=== PATIENT | female | born 1995 | race Asian ===

== ENCOUNTER 2017-04-30 15:39 | Emergency (ER) | payer OTHER ==
[~2017-04-30] VITALS: Ht 170.2 cm; Wt 52.0 kg
[2017-04-30 15:44] VITALS: TEMP 36.7; Ht 170.2 cm; Wt 52.0 kg
--- NOTE | 2017-04-30 16:13 | EMERGENCY ROOM VISIT NOTE ---
History First contact with patient: 15:40 Chief Complaint: ABDOMINAL PAIN Stated Complaint: ABD PAIN Nursing Triage Summary: Patient arrived by ambulance bls with c/o abd cramping that started earlier today. Patient reports she had pasta earlier in the day and then became "sweaty " and had a bowel movement. Patient states she had some blood in her stool. Patient on arrival states she feels better rates pain a 0/10 History of Present Illness The patient is a 21 year old female who presents to the Emergency Room with complaints of resolved abdominal pain. The patient states that approximately 10 minutes after eating popsicle, she had a sudden onset of lower abdominal cramping. She became sweaty and had a bowel movement. She states this was a loose, watery stool with about a tablespoon of blood. She felt slightly nauseous at the time, but did not vomit. Her symptoms have completely resolved at this time. She does state that her feet are numb. She reports using "laughing gas" last night, which she feels may be congestive aching to her symptoms today. She reports a history of vitamin B12 deficiency but is otherwise healthy. She denies any recent illnesses or fevers/chills. Review of Systems A complete 10 point review of systems was reviewed with the patient with pertinent positives and negatives as per history of present illness. All else were negative. Social History Smoking Status: Never Smoker Current/Historical Medications No Active Prescriptions or Reported Meds Physical Exam Vital Signs Date Time Temp Pulse Resp B/P (MAP) Pulse Ox O2 Delivery O2 Flow Rate FiO2 04/30/17 18:29 76 20 115/69 98 04/30/17 17:50 64 20 110/56 98 Room Air 04/30/17 15:44 36.7 75 20 104/65 100 Room Air Physical Exam VITALS: Vitals are noted on the nurse's note and reviewed by myself. Vital signs stable. GENERAL: This is a 21-year-old female, in no acute distress, nondiaphoretic, well-developed well-nourished. SKIN: The skin was without rashes. HEAD: Normocephalic atraumatic. EARS: External auditory canals clear, tympanic membranes pearly rowe without erythema or effusion bilaterally. EYES: Pupils equal round and reactive to light and accommodation. Conjunctivae without injection, sclerae without icterus. Extraocular movements intact. MOUTH: Mucous membranes moist. Tonsils are not enlarged. Pharynx without erythema or exudate. NECK: Supple without nuchal rigidity. No lymphadenopathy. HEART: Regular rate and rhythm without murmurs gallops or rubs. LUNGS: Clear to auscultation bilaterally without wheezes, rales or rhonchi. ABDOMEN: Positive bowel sounds x 4. Soft, nontender, without masses or organomegaly. NEURO: Patient was alert and oriented to person place and time. Normal sensation. Medical Decision & Procedures ER Provider Diagnostic Interpretation: KUB CLINICAL HISTORY: 21 years-old Female presenting with abd cramping, diarrhea. TECHNIQUE: Single supine view of the abdomen was obtained. COMPARISON: None. FINDINGS: Normal bowel gas pattern. No evidence of free intraperitoneal gas, pneumatosis, or portal venous gas. No calcifications to suggest nephrolithiasis. Osseous structures normal. Lung bases clear. IMPRESSION: 1. No acute intra-abdominal pathology. Laboratory Results 04/30/17 17:12 Red Blood Count 3.87, Mean Corpuscular Volume 92.2, Mean Corpuscular Hemoglobin 31.5, Mean Corpuscular Hemoglobin Concent 34.2, Mean Platelet Volume 9.6, Neutrophils (%) (Auto) 83.5, Lymphocytes (%) (Auto) 13.6, Monocytes (%) (Auto) 2.5, Eosinophils (%) (Auto) 0.1, Basophils (%) (Auto) 0.0, Neutrophils # (Auto) 5.66, Lymphocytes # (Auto) 0.92, Monocytes # (Auto) 0.17, Eosinophils # (Auto) 0.01, Basophils # (Auto) 0.00 04/30/17 17:12 Test 04/30/17 17:00 04/30/17 17:12 Urine Color DK YELLOW Urine Appearance CLEAR (CLEAR) Urine pH 7.0 (4.5-7.5) Urine Specific [place] 1.029 (1.000-1.030) Urine Protein 1+ (NEG) Urine Glucose (UA) NEG (NEG) Urine Ketones TRACE (NEG) Urine Occult Blood NEG (NEG) Urine Nitrite NEG (NEG) Urine Bilirubin NEG (NEG) Urine Urobilinogen NEG (NEG) Urine Leukocyte Esterase TRACE (NEG) Urine WBC (Auto) 1-5 /hpf (0-5) Urine RBC (Auto) 0-4 /hpf (0-4) Urine Hyaline Casts (Auto) 1-5 /lpf (0-5) Urine Epithelial Cells (Auto) >30 /lpf (0-5) Urine Bacteria (Auto) NEG (NEG) Urine Renal Epithelial Cells /lpf (0-5) Urine Mucus PRESENT (NONE PRSENT) Urine Test NEG (NEG) Urine Opiates Screen NEG (NEG) Urine Methadone, Qualitative NEG (NEG) Urine Barbiturates NEG (NEG) Urine Phencyclidine (PCP) Level NEG (NEG) Ur Amphetamine/Methamphetamine NEG (NEG) MDMA (Ecstasy) Screen NEG (NEG) Urine Benzodiazepines Screen NEG (NEG) Urine Cocaine Metabolite NEG (NEG) Urine Marijuana (THC) NEG (NEG) White Blood Count 6.78 K/uL (4.8-10.8) Red Blood Count 3.87 M/uL (4.2-5.4) Hemoglobin 12.2 g/dL (12.0-16.0) Hematocrit 35.7 % (37-47) Mean Corpuscular Volume 92.2 fL (80-100) Mean Corpuscular Hemoglobin 31.5 pg (25-34) Mean Corpuscular Hemoglobin Concent 34.2 g/dl (32-36) Platelet Count 262 K/uL (130-400) Mean Platelet Volume 9.6 fL (7.4-10.4) Neutrophils (%) (Auto) 83.5 % Lymphocytes (%) (Auto) 13.6 % Monocytes (%) (Auto) 2.5 % Eosinophils (%) (Auto) 0.1 % Basophils (%) (Auto) 0.0 % Neutrophils # (Auto) 5.66 K/uL (1.4-6.5) Lymphocytes # (Auto) 0.92 K/uL (1.2-3.4) Monocytes # (Auto) 0.17 K/uL (0.11-0.59) Eosinophils # (Auto) 0.01 K/uL (0-0.5) Basophils # (Auto) 0.00 K/uL (0-0.2) RDW Standard Deviation 67.1 fL (36.4-46.3) RDW Coefficient of Variation 19.9 % (11.5-14.5) Immature Granulocyte % (Auto) 0.3 % Immature Granulocyte # (Auto) 0.02 K/uL (0.00-0.02) Anion Gap 9.0 mmol/L (3-11) Est Creatinine Clear Calc Drug Dose 87.6 ml/min Estimated GFR () 116.9 Estimated GFR (Non- 100.9 BUN/Creatinine Ratio 23.5 (10-20) Calcium Level 9.1 mg/dl (8.5-10.1) Total Bilirubin 0.6 mg/dl (0.2-1) Aspartate Amino Transf (AST/SGOT) 10 U/L (15-37) Alanine Aminotransferase (ALT/SGPT) 19 U/L (12-78) Alkaline Phosphatase 67 U/L (45-117) Total Protein 8.0 gm/dl (6.4-8.2) Albumin 4.4 gm/dl (3.4-5.0) Globulin 3.6 gm/dl (2.5-4.0) Albumin/Globulin Ratio 1.2 (0.9-2) ED Course The patient was evaluated as above. Labs were drawn and IV access was obtained. Patient was reevaluated and remains asymptomatic. She has had something to eat and drink and denies any abdominal pain at this time. Discharge instructions were reviewed with the patient. The patient verbalized understanding of my assessment and treatment plan and was discharged home in good condition. Medical Decision Differential diagnosis includes anxiety, drug use, vasovagal syncope, dehydration, UTI, infection, electrolyte abnormality, among others. The patient is a 21-year-old female who presents today complaining of abdominal pain which resolved prior to arrival. The patient was apparently dizzy and lightheaded initially. She reports all of her symptoms have resolved at this time. Labs were unremarkable. Urinalysis was not suggestive of infection. Vital signs were stable throughout her stay. She is not hypotensive. She was encouraged to increase fluids that she may have been slightly dehydrated. She was encouraged to not use any recreational drugs at home. She was instructed to follow-up with [place] [facility] as needed. Based on the patient's presentation and work up, I feel the patient is stable for outpatient treatment. The patient was educated to return to the emergency department for any worsening of their current condition or new/concerning symptoms. She will follow up with [place] [facility]. Medication Reconcilliation Current Medication List: was personally reviewed by me Blood Pressure Screening Patient's blood pressure: Normal blood pressure Impression Primary Impression: Pre-syncope Departure Information Dispostion Home / Self-Care Condition GOOD Prescriptions No Active Prescriptions or Reported Meds Referrals No Doctor, Assigned (PCP) Patient Instructions My [facility] Additional Instructions Rest and drink plenty of fluids. Do not do any drugs. Follow-up with [facility] services this week as needed.
--- NOTE | 2017-04-30 16:49 | DIAGNOSTIC IMAGING REPORT ---
KUB CLINICAL HISTORY: 21 years-old Female presenting with abd cramping, diarrhea. TECHNIQUE: Single supine view of the abdomen was obtained. COMPARISON: None. FINDINGS: Normal bowel gas pattern. No evidence of free intraperitoneal gas, pneumatosis, or portal venous gas. No calcifications to suggest nephrolithiasis. Osseous structures normal. Lung bases clear. IMPRESSION: 1. No acute intra-abdominal pathology. Electronically signed by: Hany Robison M.D. 04/30/2017 4:48 PM Dictated Date/Time: 04/30/2017 4:47 PM
[2017-04-30 17:19] LABS: PREG INTERNAL NEGATIVE QC NEG CLEAR BACKGROUND; PREG INTERNAL POSITIVE QC POS CONTROL LINE
[2017-04-30 17:22] LABS: URINE APPEARANCE CLEAR (CLEAR); URINE BILIRUBIN NEG (NEG); URINE COLOR DK YELLOW; URINE EPITHELIAL CELL AUTO >30 /lpf (0-5); URINE NITRITE NEG (NEG); URINE SPECIFIC GRAVITY 1.029 (1.000-1.030); UROBILINOGEN NEG (NEG); ZZUR CULT IF INDIC CLEAN CATCH NO
[2017-04-30 17:26] LABS: MANUAL MICROSCOPIC REQUIRED? NO; REVIEW REQ? YES
[2017-04-30 17:27] LABS: COMPLETE YES; EOS % 0.1 %; HEMATOCRIT 35.7 % (37-47); IG% 0.3 %; LYMPH % 13.6 %; LYMPH ABS # 0.92 K/uL (1.2-3.4); MEAN CELL VOLUME 92.2 fL (80-100); MEAN CORPUSCULAR HEMOGLOBIN 31.5 pg (25-34); MEAN CORPUSCULAR HGB CONC 34.2 g/dl (32-36); MEAN PLATELET VOLUME 9.6 fL (7.4-10.4); MONO % 2.5 %; NEUT % 83.5 %; PLATELET COUNT 262 K/uL (130-400); RED BLOOD COUNT 3.87 M/uL (4.2-5.4); WHITE BLOOD COUNT 6.78 K/uL (4.8-10.8)
[2017-04-30 17:39] LABS: URINE MUCUS PRESENT (NONE PRSENT)
[2017-04-30 17:48] LABS: BUN/CREATININE RATIO 23.5 (10-20); CALCIUM 9.1 mg/dl (8.5-10.1); CREATININE 0.82 mg/dl (0.60-1.20); POTASSIUM 3.5 mmol/L (3.5-5.1)
[2017-04-30 17:51] LABS: ALB/GLOB RATIO 1.2 (0.9-2)
[2017-04-30 18:02] LABS: BENZODIAZEPINE, URINE NEG (NEG); COCAINE,URINE NEG (NEG); PHENCYCLIDINE, URINE NEG (NEG)
[2017-04-30 18:29] VITALS: BP 115/69; PULSE 76; O2SAT 98
== END 2017-04-30 18:34 | disposition home or self-care (01) ==
LOC: EDBD 15:39 → C.EDB 15:40
DX: R55 Syncope and collapse (principal); R10.9 Unspecified abdominal pain; R11.0 Nausea

== ENCOUNTER 2017-05-04 12:53 | Emergency (ER) | payer OTHER ==
[~2017-05-04] VITALS: Ht 167.6 cm; Wt 43.2 kg
[2017-05-04 13:06] VITALS: TEMP 36.5; Ht 167.6 cm; Wt 43.2 kg
[2017-05-04] MEDS ORDERED: CYANOCOBALAMIN 1000 MCG/ML VIAL IM STA (13:10)
--- NOTE | 2017-05-04 13:35 | EMERGENCY ROOM VISIT NOTE ---
History Report prepared by Perry: Essie Manley Under the Supervision of: Jh RuthO. First contact with patient: 12:55 Stated Complaint: MENTAL HEALTH History of Present Illness The patient is a 21 year old female who presents to the Emergency Room for a mental health evaluation. The patient states that she has been inhaling nitrous oxide daily for the past year. As a result, she has stopped going to classes and wants to withdraw from [employer]. She went to withdraw from class today and she was sent to the ED via ambulance for further evaluation. The patient states that she has been experiencing numbness and tingling pain in her feet. She states that her head has "been feeling numb" at times. The patient also reports that she has had 3 periods in the past month. She was in the ED 4 days ago for nausea and some rectal bleeding. She had a negative work-up at that time and was discharged home. The patient denies any other drug use. She denies alcohol or tobacco use. She denies SI, HI, and visual or auditory hallucinations. Source of History: patient Onset: [employer] Position: other (global) Quality: other (mental health) Timing: constant Associated Symptoms: + numbness (and tingling in feet) Note: Pt denies SI, HI, and visual or auditory hallucinations. Review of Systems See HPI for pertinent positives & negatives. A total of 10 systems reviewed and were otherwise negative. Past Medical & Surgical Medical Problems: (1) Nausea (2) Syncope and collapse Family History No pertinent history stated. Social History Smoking Status: Never Smoker Smokeless Tobacco Use: No Alcohol Use: none Drug Use: other (nitrous oxide) Occupation Status: [employer] student Current/Historical Medications No Active Prescriptions or Reported Meds Allergies Coded Allergies: Shellfish (Unverified Allergy, Unknown, RASH/HIVES, 04/30/17) Physical Exam Vital Signs Date Time Temp Pulse Resp B/P (MAP) Pulse Ox O2 Delivery O2 Flow Rate FiO2 05/04/17 17:07 94 16 121/72 100 05/04/17 14:33 66 18 101/67 100 Room Air 05/04/17 13:06 36.5 78 18 119/64 98 Room Air Physical Exam GENERAL: Patient is awake, alert, and in no acute distress. Patient is resting comfortably and showing no signs of anxiety EYES: The conjunctivae are clear. The pupils are round and reactive. EARS, NOSE, MOUTH AND THROAT: The nose is without any evidence of any deformity. Mucous membranes are moist tongue is midline NECK: The neck is nontender and supple. RESPIRATORY: Normal respiratory effort is noted there is no evidence of wheezing rhonchi or rales CARDIOVASCULAR: Regular rate and rhythm noted there no murmurs rubs or gallops normal S1 normal S2 GASTROINTESTINAL: The abdomen is soft. Bowel sounds are present in all quadrants. Abdomen is nontender MUSCULOSKELETAL/EXTREMITIES: There is no evidence of gross deformity full range of motion is noted in the hips and shoulders SKIN: There is no obvious evidence of any rash. There are no petechiae, pallor or cyanosis noted. NEUROLOGIC: Patient is awake alert and oriented x3 strength is symmetric patellar reflexes are 2+ bilaterally PSYCH: Admits to using inhalants. Currently denying SI or HI. Medical Decision & Procedures ER Provider Diagnostic Interpretation: Radiology results as stated below per my review and radiologist interpretation: CT OF THE HEAD WITHOUT CONTRAST CLINICAL HISTORY: Weakness. COMPARISON STUDY: No previous studies for comparison. CT DOSE: 537.48 mGy.cm TECHNIQUE: Helical axial images of the head were obtained without IV contrast. Automated exposure control was utilized for the study. A dose lowering technique was utilized adhering to the principles of ALARA. FINDINGS: No acute intracranial hemorrhage, midline shift or mass effect is present. Ventricular system is normal. Basilar cisterns are patent. There are no extra-axial collections. Sarkar-white differentiation is maintained. There are no findings to suggest acute dural sinus thrombosis or acute territorial infarct. No calvarial fracture is present. Visualized portions of the sinuses and mastoid air cells are clear. IMPRESSION: No acute intracranial findings. Electronically signed by: Corey Vila M.D. 05/04/2017 1:35 PM Dictated Date/Time: 05/04/2017 1:33 PM Laboratory Results 05/04/17 14:10 Red Blood Count 3.80, Mean Corpuscular Volume 93.4, Mean Corpuscular Hemoglobin 30.8, Mean Corpuscular Hemoglobin Concent 33.0, Mean Platelet Volume 10.1, Neutrophils (%) (Auto) 52.2, Lymphocytes (%) (Auto) 38.0, Monocytes (%) (Auto) 8.2, Eosinophils (%) (Auto) 1.0, Basophils (%) (Auto) 0.3, Neutrophils # (Auto) 2.03, Lymphocytes # (Auto) 1.48, Monocytes # (Auto) 0.32, Eosinophils # (Auto) 0.04, Basophils # (Auto) 0.01 05/04/17 14:10 Test 05/04/17 00:00 05/04/17 14:10 05/04/17 15:55 Urine Color DK YELLOW Urine Appearance CLOUDY (CLEAR) Urine pH 5.5 (4.5-7.5) Urine Specific [place] 1.031 (1.000-1.030) Urine Protein 1+ (NEG) Urine Glucose (UA) NEG (NEG) Urine Ketones TRACE (NEG) Urine Occult Blood 2+ (NEG) Urine Nitrite NEG (NEG) Urine Bilirubin NEG (NEG) Urine Urobilinogen NEG (NEG) Urine Leukocyte Esterase SMALL (NEG) Urine WBC (Auto) 5-10 /hpf (0-5) Urine RBC (Auto) 10-30 /hpf (0-4) Urine Hyaline Casts (Auto) 1-5 /lpf (0-5) Urine Epithelial Cells (Auto) >30 /lpf (0-5) Urine Bacteria (Auto) NEG (NEG) Urine Renal Epithelial Cells /lpf (0-5) Urine Crystals CALCIUM OXALATE (NONE Urine Pathogenic Casts /lpf (0) Urine Yeast (Auto) (NONE PRSENT) Urine Test NEG (NEG) Urine Opiates Screen NEG (NEG) Urine Methadone, Qualitative NEG (NEG) Urine Barbiturates NEG (NEG) Urine Phencyclidine (PCP) Level NEG (NEG) Ur Amphetamine/Methamphetamine NEG (NEG) MDMA (Ecstasy) Screen NEG (NEG) Urine Benzodiazepines Screen NEG (NEG) Urine Cocaine Metabolite NEG (NEG) Urine Marijuana (THC) NEG (NEG) White Blood Count 3.89 K/uL (4.8-10.8) Red Blood Count 3.80 M/uL (4.2-5.4) Hemoglobin 11.7 g/dL (12.0-16.0) Hematocrit 35.5 % (37-47) Mean Corpuscular Volume 93.4 fL (80-100) Mean Corpuscular Hemoglobin 30.8 pg (25-34) Mean Corpuscular Hemoglobin Concent 33.0 g/dl (32-36) Platelet Count 284 K/uL (130-400) Mean Platelet Volume 10.1 fL (7.4-10.4) Neutrophils (%) (Auto) 52.2 % Lymphocytes (%) (Auto) 38.0 % Monocytes (%) (Auto) 8.2 % Eosinophils (%) (Auto) 1.0 % Basophils (%) (Auto) 0.3 % Neutrophils # (Auto) 2.03 K/uL (1.4-6.5) Lymphocytes # (Auto) 1.48 K/uL (1.2-3.4) Monocytes # (Auto) 0.32 K/uL (0.11-0.59) Eosinophils # (Auto) 0.04 K/uL (0-0.5) Basophils # (Auto) 0.01 K/uL (0-0.2) RDW Standard Deviation 68.5 fL (36.4-46.3) RDW Coefficient of Variation 20.5 % (11.5-14.5) Immature Granulocyte % (Auto) 0.3 % Immature Granulocyte # (Auto) 0.01 K/uL (0.00-0.02) Anisocytosis PRESENT Anion Gap 11.0 mmol/L (3-11) Est Creatinine Clear Calc Drug Dose 89.1 ml/min Estimated GFR () 143.6 Estimated GFR (Non- 123.9 BUN/Creatinine Ratio 22.2 (10-20) Calcium Level 9.5 mg/dl (8.5-10.1) Magnesium Level 2.5 mg/dl (1.8-2.4) Total Bilirubin 0.4 mg/dl (0.2-1) Direct Bilirubin 0.1 mg/dl (0-0.2) Aspartate Amino Transf (AST/SGOT) 13 U/L (15-37) Alanine Aminotransferase (ALT/SGPT) 17 U/L (12-78) Alkaline Phosphatase 67 U/L (45-117) Total Protein 8.2 gm/dl (6.4-8.2) Albumin 4.5 gm/dl (3.4-5.0) Thyroid Stimulating Hormone (TSH) 1.240 uIu/ml (0.300-4.500) Ethyl Alcohol mg/dL < 3.0 mg/dl (0-3) Vitamin B12 Level > 2000 pg/mL (211-911) Laboratory results per my review. Medications Administered Medications (Trade) Dose Ordered Sig/Nancy Route Start Time Stop Time Status Last Admin Dose Admin Cyanocobalamin (Vitamin B-12 Inj) 1,000 mcg ONE STAT IM 05/04/17 13:10 05/04/17 13:12 DC 05/04/17 13:10 1,000 MCG ED Course 1255: The patient was evaluated in room A8. A complete history and physical examination were performed. 1310: Cyanocobalamin 1000 mcg IM 1318: I spoke with Dr. Pugh of neurology regarding the patient's case. The patient was previously referred to him for follow-up but she has not been coming to her appointments. 1346: I spoke with the psychiatric binder caser who had spoken to [facility]. Today was the first time the patient had come to their office. [facility] was concerned about the patient because she was unable to walk in their office today. They also do not think that the patient has any support system locally as she is an international student. 1513: I updated the patient on her results. We discussed the treatment plan and she is refusing to stay in the hospital at this time. 1537: I spoke with Dr. Pugh of neurology again regarding the patient's treatment plan. He recommended Vitamin B12 replacement and cessation of nitrous oxide use. 1600: I reassessed the patient at this time. She is feeling better and resting comfortably. I discussed the results and treatment plan with the patient. I answered all pertaining questions that she had. She expressed understanding and verbalized agreement. The patient will be discharged home. Medical Decision Differential diagnosis: Etiologies such as mood disorder, infection, hypoglycemia, electrolyte abnormalities, cardiac sources, intracerebral event, toxicologic, neurologic, as well as others were entertained. Nursing notes reviewed. The patient is a 21-year-old female who presented to the emergency department for mental health evaluation. 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 She's been seen by her primary care physician as well as by neurology. She is had a regimen of vitamin B-12 but I am unsure if she has been compliant with this. She was given a dose of vitamin B-12 the emergency department. She was evaluated by the mental health binder caser. At this time she does not wish to be admitted for mental health evaluation and she does not wish to be admitted for a medical admission. I discussed her case with her neurologist. She was encouraged to continue all medications as prescribed and avoid further nitrous oxide. She was also encouraged follow-up with [facility]. She was encouraged to call crisis or return to emergency [place] immediately if symptoms change worsen or the need arises. Medication Reconcilliation Current Medication List: was personally reviewed by me Blood Pressure Screening Patient's blood pressure: Normal blood pressure Consults Time Called: 1315 Consulting Physician: Dr. Pugh Returned Call: [address] Pugh of neurology regarding the patient's case. The patient was previously referred to him for follow-up but she has not been coming to her appointments. Additional Consults: Time Called: 1531 Consulted Physician: Dr. Pugh Returned Call: [phone] Additional Comments: I spoke with Dr. Pugh of neurology again regarding the patient's treatment plan. He recommended Vitamin B12 replacement and cessation of nitrous oxide use. Impression Primary Impression: Poisoning by nitrous oxide Additional Impression: Peripheral neuropathy Scribe Attestation The scribe's documentation has been prepared under my direction and personally reviewed by me in its entirety. I confirm that the note above accurately reflects all work, treatment, procedures, and medical decision making performed by me. Departure Information Dispostion Home / Self-Care Prescriptions No Active Prescriptions or Reported Meds Referrals Giovana Pugh M.D. [facility] Forms HOME CARE DOCUMENTATION FORM, IMPORTANT VISIT INFORMATION, School Instructions, Work Instructions Patient Instructions ED Drug Abuse General, My [facility], Neuropathy Peripheral Additional Instructions Avoid any further use of nitrous oxide. You should follow-up with [facility] every week for a new vitamin B-12 injection. You received one dose of vitamin B-12 in the ER today. I would recommend a repeat injection every week for the next 4 weeks. And then a repeat injection every other week for 4 doses afterwards. Call crisis or return to the emergency department immediately if symptoms change worsen or the need arises. Call the neurologist to schedule a follow-up appointment as well. Problem Qualifiers Primary Impression: Poisoning by nitrous oxide Encounter type: sequela Injury intent: accidental or unintentional Qualified Codes: T41.0X1S - Poisoning by inhaled anesthetics, accidental ( unintentional), sequela Additional Impression: Peripheral neuropathy Peripheral neuropathy type: polyneuropathy, unspecified Qualified Codes: G62.9 - Polyneuropathy, unspecified
[2017-05-04 13:49] LABS: BENZODIAZEPINE, URINE NEG (NEG); COCAINE,URINE NEG (NEG); PHENCYCLIDINE, URINE NEG (NEG)
[2017-05-04 14:40] LABS: BASO % 0.3 %; BASO ABS # 0.01 K/uL (0-0.2); HEMATOCRIT 35.5 % (37-47); IG% 0.3 %; LYMPH ABS # 1.48 K/uL (1.2-3.4); MEAN CELL VOLUME 93.4 fL (80-100); MEAN CORPUSCULAR HEMOGLOBIN 30.8 pg (25-34); MEAN PLATELET VOLUME 10.1 fL (7.4-10.4); MONO % 8.2 %; NEUT % 52.2 %; PLATELET COUNT 284 K/uL (130-400); WHITE BLOOD COUNT 3.89 K/uL (4.8-10.8)
[2017-05-04 15:00] LABS: BUN/CREATININE RATIO 22.2 (10-20); CALCIUM 9.5 mg/dl (8.5-10.1); CREATININE 0.67 mg/dl (0.60-1.20); MAGNESIUM 2.5 mg/dl (1.8-2.4); POTASSIUM 3.6 mmol/L (3.5-5.1)
[2017-05-04 15:11] LABS: THYROID STIMULATING HORMONE 1.24 uIu/ml (0.300-4.500)
[2017-05-04 15:25] LABS: ANISOCYTOSIS PRESENT; COMPLETE YES
[2017-05-04 16:18] LABS: URINE APPEARANCE CLOUDY (CLEAR); URINE BILIRUBIN NEG (NEG); URINE COLOR DK YELLOW; URINE EPITHELIAL CELL AUTO >30 /lpf (0-5); URINE NITRITE NEG (NEG); URINE PH 5.5 (4.5-7.5); URINE SPECIFIC GRAVITY 1.031 (1.000-1.030); UROBILINOGEN NEG (NEG)
[2017-05-04 16:22] LABS: MANUAL MICROSCOPIC REQUIRED? NO; REVIEW REQ? YES
[2017-05-04 17:07] VITALS: BP 121/72; PULSE 94; O2SAT 100
== END 2017-05-04 17:09 | disposition home or self-care (01) ==
LOC: EDBD 12:53 → C.EDA 12:54
DX: T41 Poisoning by, adverse effect of and underdosing of anesthetics and therapeutic gases (principal); G62.9 Polyneuropathy, unspecified

== ENCOUNTER 2017-07-10 14:55 | Emergency (ER) | payer OTHER ==
[~2017-07-10] VITALS: Ht 170.2 cm; Wt 53.3 kg
[2017-07-10 15:06] VITALS: BP 121/87; PULSE 103; TEMP 36.9; O2SAT 98; Ht 170.2 cm; Wt 53.3 kg
[2017-07-10] MEDS ORDERED: METH4PAK PO (15:37)
--- NOTE | 2017-07-10 15:40 | EMERGENCY ROOM VISIT NOTE ---
ED Visit Note First contact with patient: 15:19 CHIEF COMPLAINT: Rash HISTORY OF PRESENT ILLNESS: This 21-year-old female patient presents to the emergency department, ambulatory, complaining of a rash on her face and neck which started about 1 week ago. The patient states she changed her face cream approximately 1 week prior to noticing the rash. She has continued to use the face cream until yesterday. The patient denies fever, chills, nausea, or loss of appetite. They deny any URI symptoms. The patient has tried multiple different lotions, baby lotions, oil, and aloe. The patient states the rash is itchy and rates the discomfort as 0/10. She states she was recently in [place] where she purchased a bottle of similar lotion and did not have a problem. She states when she returned, she purchased a new bottle of the same lotion. The rash is only in the area that she applies this is a 50 lotion, and she has not noticed a rash anywhere else. No change in food, soap, detergents, or other environmental factors. No new medications. No weakness or numbness. REVIEW OF SYSTEMS: A 6 system review of systems was completed with positives and pertinent negatives listed in the HPI. ALLERGIES: Seafood MEDICATIONS: None PMH: None SOCIAL HISTORY: The patient is a [employer] student. She lives locally with her roommates. She denies drug, alcohol use. She denies a smoking approximately 5 cigarettes per day. PHYSICAL EXAM: Vital Signs: Reviewed Nurse's notes, vital signs stable. GENERAL : This is a 21-year-old female, in no acute distress, well-developed, well -nourished. SKIN: There is a dry, erythematous, maculopapular rash on the face and neck. There is no active drainage. The face is slightly swollen, but there is no lip swelling. The airway is patent. Capillary refill less than 2 seconds. EMERGENCY DEPARTMENT COURSE: The patient was seen and evaluated as above. Suspect an allergic contact dermatitis due to the face lotion the patient has recently been using, as this is new and the distribution of the rash is consistent with the location the patient applies the lotion. The patient has been using the lotion up until yesterday, and states the rash has been getting worse until she stopped using it. She has been trying several OTC lotions in order to try to help the rash improved. She will be prescribed Medrol Dosepak to be used if the rash does not improve over the next 1-2 days after discontinuing the use of the face cream. I did also recommend Benadryl, and offered to provide the patient with a dose here, but she declines. She is in agreement with the assessment and plan, and discharge instructions were reviewed. Patient is discharged home in good condition. I attest that I have personally reviewed the patient's current medication list. Patient was found to have normal blood pressure on screening and does not require follow-up. DIFFERENTIAL DIAGNOSIS: Dermatitis, contact dermatitis, upper respiratory infection, acute sinusitis, cellulitis, abscess, malignancy, and others DIAGNOSIS: Contact dermatitis due to cosmetics Problem List Medical Problems: (1) Nausea Status: Resolved (2) Syncope and collapse Status: Resolved Current/Historical Medications Scheduled Methylprednisolone (Medrol Dosepak), 0 PO DAILY Allergies Coded Allergies: Shellfish (Verified Allergy, Severe, RASH/HIVES, 07/10/17) Uncoded Nonscreenable Allergen (Verified Allergy, Unknown, SEAFOOD-"ITCHY , RED RASH IF EAT 2 KINDS AT ONCE"., 07/10/17) Vital Signs Date Time Temp Pulse Resp B/P (MAP) Pulse Ox O2 Delivery O2 Flow Rate FiO2 07/10/17 15:06 36.9 103 16 121/87 98 Room Air Departure Information Impression Primary Impression: Contact dermatitis due to cosmetics Dispostion Home / Self-Care Condition GOOD Prescriptions Methylprednisolone (MEDROL DOSEPAK) 4 Mg [place] 0 PO DAILY, #1 PKT Prov: Izabella Lang, SANTANA 07/10/17 Referrals No Doctor, Assigned (PCP) [facility] Patient Instructions ED Allergic Reaction Local Other, My [facility] Additional Instructions You have been treated in the Emergency Department today for your Rash ( Dermatitis). You have been prescribed a Medrol Dosepak. This is a steroid which will help decrease your inflammation, redness, and itch. Take the medicine as prescribed. Take the ENTIRE 6 day course of the steroids. Take this medication only if the rash does not improve after 1-2 days of not using the face lotion we suspect is the cause of the rash. You should take Benadryl (diphenhydramine) 50 mgs every 6 hours for the next 3 days. You can find this medicine [id number]. Benadryl can help reduce your symptoms. You should take it for the next 3 days or until your symptoms have subsided. Be aware that Benadryl can make you drowsy. As discussed, you may try Eucerin cream for sensitive skin, however, I would be cautious, as new creams could always worsen the allergic reaction. I strongly recommend against any creams until the rash has subsided. As with any Emergency Department visit, you should follow-up with your Primary Care Provider in 3-4 days for reevaluation from today's visit. Return to the Emergency Department if your symptoms persists despite the above outlined treatment plan or if you experience the following symptoms: worsening of your rash, uncontrollable itching, intractable pain, wheezing, shortness of breath, or dizziness. Problem Qualifiers Primary Impression: Contact dermatitis due to cosmetics Contact dermatitis type: allergic Qualified Codes: L23.2 - Allergic contact dermatitis due to cosmetics
== END 2017-07-10 15:46 | disposition home or self-care (01) ==
LOC: C.EDB 14:59 → C.EDD 15:46
DX: L23.2 Allergic contact dermatitis due to cosmetics (principal)